=== PATIENT | female | born 1965 | race Caucasian/White ===

== ENCOUNTER 2018-11-19 16:07 | Emergency (ER) | payer SELFPAY ==
[~2018-11-19] VITALS: Ht 152.4 cm; Wt 90.9 kg
[2018-11-19 16:24] VITALS: BP 140/94
== END 2018-11-19 19:40 | disposition left against medical advice (07) ==
LOC: EMS 16:08
DX: R10.9 Unspecified abdominal pain (principal); Z53.21 Procedure and treatment not carried out due to patient leaving prior to being seen by health care provider